=== PATIENT | female | born 1975 | race Caucasian/White ===

== ENCOUNTER 2016-10-08 22:05 | Inpatient (IN) | payer MEDICAID ==
--- NOTE | 2016-10-08 22:37 | EDPHY ---
H & P Stated Complaint: R lateral thigh; worried about MRSA HPI/ROS: HPI CHIEF COMPLAINT: Right lateral thigh swelling, redness, pain, IV drug user HISTORY OF PRESENT ILLNESS: This patient is a 40-year-old female she presents emergency room by private vehicle with swelling redness and warmth to the right leg. She tells me this has been going on for 4 days. She did have a fever 4 days ago. She tells me she is an avid IV drug user, she shoots heroin daily and methamphetamine daily. She has swelling, redness, erythema to the right lower extremity including thigh. Patient tells me most likely this is a injection site that got infected. Past Medical History: MRSA infection, cellulitis, IV drug site infection Past Surgical History: Right foot surgery from a MRSA infection Social History: homeless, daily use of IV drugs including heroin and methamphetamine Family History: Noncontributory ROS REVIEW OF SYSTEMS: A comprehensive 10 point review of systems is otherwise negative aside from elements mentioned in the history of present illness. Exam Constitutional triage nursing summary reviewed, vital signs reviewed, awake/ alert. Eyes normal conjunctivae and sclera, EOMI, PERRLA. HENT normal inspection, atraumatic, moist mucus membranes, no epistaxis, neck supple/ no meningismus, no raccoon eyes. Respiratory clear to auscultation bilaterally, normal breath sounds, no respiratory distress, no wheezing. Cardiovascular rate normal, regular rhythm, no murmur, no edema, distal pulses normal. Gastrointestinal soft, non-tender, no rebound, no guarding, normal bowel sounds, no distension, no pulsatile mass. Genitourinary no CVA tenderness. Musculoskeletal no midline vertebral tenderness, full range of motion, no calf swelling, no tenderness of extremities, no meningismus, good pulses, neurovascularly intact. Right lower extremity: edema present to the right lower extremity, significant amount of erythema and cellulitis to the right lower extremity including right lateral thigh and right lower extremity. Edema present. Erythema and warmth present. No crepitus. Right leg is neurovascular intact. Skin multiple extensive a IV drug user sites. Extensive venous scarring and scarring of extremities. See above for right lower extremity erythema. Neurologic awake, alert and oriented x 3, AAOx3, moves all 4 extremities equally, motor intact, sensory intact, CN II-XII intact, normal cerebellar, normal vision, normal speech. Psychiatric normal mood/affect. Heme/Lymph/Immune no lymphadenopathy. Differential Diagnosis: Includes but is not limited to right lower extremity cellulitis, MRSA infection, staph infection, strep infection, significant amount of cellulitis IV drug user site infection Medical Decision Making: This patient had an IV established, obtain blood work, blood cultures, started on vancomycin and cefepime for significant right lower extremity cellulitis. Her vitals have been reviewed there is no evidence of sepsis at this time. Patient will be admitted to the hospital. She will need ultrasound of right lower extremity. Re-evaluation: Ultrasound of the right lower extremity. The results of the study are negative for DVT. I discussed the results of this study with the radiologist Dr. Sandoval [id number]: I consult the hospitalist service to admit this patient for right lower extremity cellulitis. Patient received broad-spectrum antibiotics, blood cultures are pending. IV vancomycin, IV cefepime. She is hemodynamically stable afebrile. No signs of sepsis. Her cellulitis has been outlined. Dr. Mcnamara has Accepted. ED Procedure: I+D of right lower extremity leg abscess cellulitis. Under ultrasound guidance direct visualization was obtained of a right lateral thigh abscess. I made a simple 2 cm I and D with a 11 blade scalpel. And got 5 cc of yellow purulent material. Dressing has been placed. I did try to see if the wound tract. On ultrasound there is extensive cellulitis there is a small fluid-filled collection. I did drain some. The material. She will be placed on broad-spectrum antibiotics admitted to the hospitalist service. She tolerated the I and D very well. There was not enough room to pack her I and D. The image saved in ultrasound. Source: Patient - Personal History LMP (Females 10-55): Hysterectomy Current Tetanus/Diphtheria Vaccine: Yes - Medical/Surgical History Hx Asthma: No Hx Chronic Respiratory Disease: No Hx Diabetes: No Hx Cardiac Disease: Yes Hx Renal Disease: No Hx Cirrhosis: No Hx Alcoholism: No Hx HIV/AIDS: No Hx Splenectomy or Spleen Trauma: No Other PMH: PSHx: hysterectomy, L foot. PMHx: RA, DJD, "fibro", AL - Social History Smoking Status: Current every day smoker Constitutional: Initial Vital Signs Temperature (C) 36.3 C 10/08/16 22:07 Heart Rate 111 H 10/08/16 22:07 Respiratory Rate 16 10/08/16 22:07 Blood Pressure 114/85 H 10/08/16 22:07 O2 Sat (%) 99 10/08/16 22:07 O2 Delivery Mode Room Air Allergies/Adverse Reactions: amoxicillin Allergy (Verified 10/08/16 22:07) nitrous oxide Allergy (Verified 10/08/16 22:07) Penicillins Allergy (Verified 10/08/16 22:07) Home Medications: Medication Instructions Recorded NK [No Known Home Meds] 10/08/16 Medical Decision Making - Data Points Laboratory Results: Laboratory Results 10/08/16 23:00 10/08/16 23:00 10/08/16 23:00 WBC 15.07 H 10^3/uL (3.80-9.50) RBC 3.86 L 10^6/uL (4.18-5.33) Hgb 10.2 L g/dL (12.6-16.3) Hct 32.7 L % (38.0-47.0) MCV 84.7 fL (81.5-99.8) MCH 26.4 L pg (27.9-34.1) MCHC 31.2 L g/dL (32.4-36.7) RDW 16.0 H % (11.5-15.2) Plt Count 296 10^3/uL (150-400) MPV 10.0 fL (8.7-11.7) Neut % (Auto) 75.9 H % (39.3-74.2) Lymph % (Auto) 17.5 % (15.0-45.0) [place] % (Auto) 3.6 L % (4.5-13.0) Eos % (Auto) 0.8 % (0.6-7.6) Baso % (Auto) 0.3 % (0.3-1.7) Nucleat RBC Rel Count 0.0 % (0.0-0.2) Absolute Neuts (auto) 11.45 H 10^3/uL (1.70-6.50) Absolute Lymphs (auto) 2.63 10^3/uL (1.00-3.00) Absolute Monos (auto) 0.55 10^3/uL (0.30-0.80) Absolute Eos (auto) 0.12 10^3/uL (0.03-0.40) Absolute Basos (auto) 0.04 10^3/uL (0.02-0.10) Absolute Nucleated RBC 0.00 10^3/uL (0-0.01) Immature Gran % 1.9 H % (0.0-1.1) Immature Gran # 0.28 H 10^3/uL (0.00-0.10) ESR 83 H MM/HR (0-20) Sodium 142 mEq/L (134-144) Potassium 4.8 mEq/L (3.5-5.2) Chloride 107 mEq/L (97-110) Carbon Dioxide 22 mEq/l (22-31) Anion Gap 13 mEq/L (8-16) BUN 21 mg/dL (7-23) Creatinine 0.9 mg/dL (0.6-1.0) Estimated GFR > 60 Glucose 83 mg/dL (70-100) Calcium 8.6 mg/dL (8.5-10.4) Total Bilirubin 0.3 mg/dL (0.1-1.4) AST 15 IU/L (14-46) ALT 28 IU/L (9-52) Alkaline Phosphatase 147 H IU/L (38-126) C-Reactive Protein 59.5 H mg/L (<10.0) Total Protein 6.5 g/dL (6.3-8.2) Albumin 3.1 L g/dL (3.5-5.0) Medications Given: Discontinued Medications Fentanyl (Sublimaze) 50 mcg IVP EDNOW ONE Stop: 10/08/16 23:36 Last Admin: 10/09/16 00:06 Dose: 50 mcg Sodium Chloride (Ns) 1,000 mls @ 0 mls/hr IV ONCE ONE PRN Reason: Wide Open Stop: 10/08/16 22:42 Last Admin: 10/09/16 00:05 Dose: 1,000 mls Vancomycin/Sodium Chloride (Vancomycin 1 Gm (Premix)) 250 mls @ 250 mls/hr IV EDNOW ONE PRN Reason: Protocol Stop: 10/08/16 23:40 Last Admin: 10/09/16 00:05 Dose: 250 mls Departure - Departure Disposition: [facility] Acute Clinical Impression: Cellulitis of right lower extremity Condition: Fair
[2016-10-08] MEDS ORDERED: NS 1,000 ML IV ONE (22:41)
[2016-10-08] MEDS ORDERED: VANCOMYCIN HCL/NORMAL SALINE 250 ML IV ONE (22:41)
[2016-10-08] MEDS ORDERED: CEFEPIME HCL 1 GM in D5W 50 ML IV ONE (22:41)
[2016-10-08 23:15] LABS: % IMMATURE GRANULYOCYTES 1.9 % (0.0-1.1); ABSOLUTE IMMATURE GRANULOCYTES 0.28 10^3/uL (0.00-0.10); ADD DIFF? NO; ADD MORPH? NO; ADD SCAN? NO; ATYPICAL LYMPHOCYTE FLAG 20 (0-99); FRAGMENT RBC FLAG 0 (0-99); HEMATOCRIT 32.7 % (38.0-47.0); HEMOGLOBIN 10.2 g/dL (12.6-16.3); LEFT SHIFT FLG 10 (0-99); LIPEMIA HEMOLYSIS FLAG 80 (0-99); MEAN CELL HEMOGLOBIN 26.4 pg (27.9-34.1); MEAN CELL HEMOGLOBIN CONCENTR. 31.2 g/dL (32.4-36.7); MEAN CELL VOLUME 84.7 fL (81.5-99.8); PLATELET CLUMPS FLAG 0 (0-99); PLATELET COUNT 296 10^3/uL (150-400); RED BLOOD CELL COUNT 3.86 10^6/uL (4.18-5.33)
[2016-10-08] MEDS ORDERED: fentaNYL 100 MCG/2 ML INJ IVP ONE (23:35)
--- NOTE | 2016-10-08 23:45 | US ---
Ultrasound and Venous Duplex Doppler Study of Right Lower Extremity History: Swollen and red right lower extremity x4 days Technique: High frequency transducer was used for imaging and Doppler study of the veins of the lowe r extremity. Pulsed Doppler and color Doppler were utilized, along with various maneuvers to assess flow in the veins. Findings: There is several enlarged lymph nodes in the right inguinal area the largest measures 2.7 x 0.8 cm. The deep veins of the lower extremity are normally compressible between the groin and the u pper calf and have normal Doppler waveforms within them. No venous thrombosis is identified. No supe rficial phlebitis or Spann cyst is identified. Impression: 1. Right inguinal adenopathy. 2. No evidence of deep vein thrombosis in the right lower extremity. Results called to Dr. Cohen at 1144 p.m.
[2016-10-08 23:51] LABS: ALANINE AMINOTRANSFERASE 28 IU/L (9-52); ALBUMIN 3.1 g/dL (3.5-5.0); ALKALINE PHOSPHATASE 147 IU/L (38-126); ANION GAP 13 mEq/L (8-16); ASPARTATE AMINOTRANSFERASE 15 IU/L (14-46); BILIRUBIN,TOTAL 0.3 mg/dL (0.1-1.4); C-REACTIVE PROTEIN 59.5 mg/L (<10.0); CALCIUM 8.6 mg/dL (8.5-10.4); CARBON DIOXIDE 22 mEq/l (22-31); CHLORIDE 107 mEq/L (97-110); CREATININE 0.9 mg/dL (0.6-1.0); GLOMERULAR FILTRATION RATE > 60; GLUCOSE 83 mg/dL (70-100); POTASSIUM 4.8 mEq/L (3.5-5.2); SODIUM 142 mEq/L (134-144); TOTAL PROTEIN 6.5 g/dL (6.3-8.2)
[2016-10-09 00:03] LABS: SEDIMENTATION RATE 83 MM/HR (0-20)
[2016-10-09] MEDS ORDERED: IBUPROFEN 200 MG TAB PO PRN (00:17)
[2016-10-09] MEDS ORDERED: ONDANSETRON 4 MG/2 ML VIAL IVP PRN (00:17)
[2016-10-09] MEDS ORDERED: ONDANSETRON DISINTEGRATING 4 MG TAB PO PRN (00:17)
[2016-10-09] MEDS ORDERED: NS 1,000 ML IV SCH (00:30)
[2016-10-09] MEDS ORDERED: HYDROmorphONE/DILAUDID 1 MG/ML SYR IVP PRN (00:58)
[2016-10-09] MEDS: LORazepam 0.5 MG TAB PO PRN ×2 (01:42→07:42)
[2016-10-09] MEDS: KETOROLAC 30 MG/1 ML SDV IVP PRN ×2 (01:42→07:42)
[2016-10-09] MEDS: HYDROmorphONE/DILAUDID 1 MG/ML SYR IVP PRN ×5 (02:08→10:48)
--- NOTE | 2016-10-09 05:55 | PDGENHP ---
History and Physical - Chief Complaint R leg reddness and swelling - History of Present Illness patient is a 40-year-old female with history of active IV drug use, RA and fibromyalgia who presents to the ED complaining of right leg pain, swelling and erythema. Patient reports using IV heroin and methamphetamines at least twice daily. About 4 days ago she reports missing 1 of her veins on her lower right lateral thigh and the drugs extravasated subcutaneously. Since that time, redness and pain developed at the site of injection. She had an old prescription for Bactrim which she took beginning 3 days ago, but despite this the redness swelling and pain continued to increase and spread throughout her right leg. She reports some associated fevers and chills, so she decided to come to the ED for further evaluation. She denies any nausea, vomiting, diarrhea cough. patient reports history of multiple episodes of skin abscesses and cellulitis. She does report a history of MRSA infection of her right foot within the past 6 months (treated at a [facility]). On arrival to the ED patient was afebrile and hemodynamically stable. Labs revealed leukocytosis, elevated ESR and CRP. Lower extremity Doppler rule out DVT. Physical exam revealed evidence of abscess which was I&D by ED physician. She was initiated on IV antibiotics and admitted to the hospital service for further management. History Information - Allergies/Home Medication List Allergies/Adverse Reactions: amoxicillin Allergy (Verified 10/08/16 22:07) nitrous oxide Allergy (Verified 10/08/16 22:07) Penicillins Allergy (Verified 10/08/16 22:07) Home Medications: NK [No Known Home Meds] 10/08/16 [Last Taken Unknown] I have personally reviewed and updated: family history, medical history, social history, surgical history - Past Medical History Additional medical history: Rheumatoid arthritis, not currently followed by any MD. fibromyalgia. chronic pain syndrome. chronic IV opioid and methamphetamine abuse - Surgical History Additional surgical history: partial hysterectomy - Family History Positive for: non-pertinent - Social History Smoking Status: Current every day smoker (1/2 PPD x 5 years) Alcohol Use: None Drug Use: Heroin (IV), Other (methamphetamine) Additional social history: patient recently moved to the [facility] from [place], currently living with friends. Review of Systems ROS: 10pt was reviewed & negative except for what was stated in HPI & below Physical Exam Temp Pulse Resp BP Pulse Ox 36.4 C 99 14 122/81 H 98 10/09/16 03:30 10/09/16 03:30 10/09/16 03:30 10/09/16 03:30 10/09/16 03:30 Constitutional: no apparent distress, appears nourished, not in pain Eyes: PERRL, anicteric sclera, EOMI Ears, Nose, Mouth, Throat: moist mucous membranes, hearing normal, ears appear normal, no oral mucosal ulcers Cardiovascular: regular rate and rhythym, no murmur, rub, or gallop, pulses symmetric bilaterally, edema (R lower extremity edema), No JVD Peripheral Pulses: 2+: dorsalis-pedis (R), dorsalis-pedis (L) Respiratory: no respiratory distress, no rales or rhonchi, clear to auscultation Gastrointestinal: normoactive bowel sounds, soft, non-tender abdomen, no palpable masses, No guarding, No rebound Genitourinary: no bladder fullness, no bladder tenderness Skin: other (diffuse scattered injection site scarring; R lower extremity erythematous from lateral thigh just proximal to knee extending into calf and to upper thigh, with tenderness and edema ) Musculoskeletal: full muscle strength, no muscle tenderness, normal joint ROM, no joint effusions Neurologic: AAOx3, sensation intact bilaterally, CN II-XII Intact, No weakness, No numbness Psychiatric: interacting appropriately, not anxious, not encephalopathic, thought process linear Lab Data & Imaging Review 10/08/16 23:00 10/08/16 23:00 WBC 15.07 10^3/uL (3.80-9.50) H 10/08/16 23:00 RBC 3.86 10^6/uL (4.18-5.33) L 10/08/16 23:00 Hgb 10.2 g/dL (12.6-16.3) L 10/08/16 23:00 Hct 32.7 % (38.0-47.0) L 10/08/16 23:00 MCV 84.7 fL (81.5-99.8) 10/08/16 23:00 MCH 26.4 pg (27.9-34.1) L 10/08/16 23:00 MCHC 31.2 g/dL (32.4-36.7) L 10/08/16 23:00 RDW 16.0 % (11.5-15.2) H 10/08/16 23:00 Plt Count 296 10^3/uL (150-400) 10/08/16 23:00 MPV 10.0 fL (8.7-11.7) 10/08/16 23:00 Neut % (Auto) 75.9 % (39.3-74.2) H 10/08/16 23:00 Lymph % (Auto) 17.5 % (15.0-45.0) 10/08/16 23:00 [place] % (Auto) 3.6 % (4.5-13.0) L 10/08/16 23:00 Eos % (Auto) 0.8 % (0.6-7.6) 10/08/16 23:00 Baso % (Auto) 0.3 % (0.3-1.7) 10/08/16 23:00 Nucleat RBC Rel Count 0.0 % (0.0-0.2) 10/08/16 23:00 Absolute Neuts (auto) 11.45 10^3/uL (1.70-6.50) H 10/08/16 23:00 Absolute Lymphs (auto) 2.63 10^3/uL (1.00-3.00) 10/08/16 23:00 Absolute Monos (auto) 0.55 10^3/uL (0.30-0.80) 10/08/16 23:00 Absolute Eos (auto) 0.12 10^3/uL (0.03-0.40) 10/08/16 23:00 Absolute Basos (auto) 0.04 10^3/uL (0.02-0.10) 10/08/16 23:00 Absolute Nucleated RBC 0.00 10^3/uL (0-0.01) 10/08/16 23:00 Immature Gran % 1.9 % (0.0-1.1) H 10/08/16 23:00 Immature Gran # 0.28 10^3/uL (0.00-0.10) H 10/08/16 23:00 ESR 83 MM/HR (0-20) H 10/08/16 23:00 Sodium 142 mEq/L (134-144) 10/08/16 23:00 Potassium 4.8 mEq/L (3.5-5.2) 10/08/16 23:00 Chloride 107 mEq/L (97-110) 10/08/16 23:00 Carbon Dioxide 22 mEq/l (22-31) 10/08/16 23:00 Anion Gap 13 mEq/L (8-16) 10/08/16 23:00 BUN 21 mg/dL (7-23) 10/08/16 23:00 Creatinine 0.9 mg/dL (0.6-1.0) 10/08/16 23:00 Estimated GFR > 60 10/08/16 23:00 Glucose 83 mg/dL (70-100) 10/08/16 23:00 Calcium 8.6 mg/dL (8.5-10.4) 10/08/16 23:00 Total Bilirubin 0.3 mg/dL (0.1-1.4) 10/08/16 23:00 AST 15 IU/L (14-46) 10/08/16 23:00 ALT 28 IU/L (9-52) 10/08/16 23:00 Alkaline Phosphatase 147 IU/L (38-126) H 10/08/16 23:00 C-Reactive Protein 59.5 mg/L (<10.0) H 10/08/16 23:00 Total Protein 6.5 g/dL (6.3-8.2) 10/08/16 23:00 Albumin 3.1 g/dL (3.5-5.0) L 10/08/16 23:00 Visualized and Interpreted imaging results: Yes Interpretation: LE doppler: no DVT Assessment & Plan Assessment: Patient is a 40-year-old female with history of chronic IV drug abuse who presents to the ED with acute right lower extremity cellulitis at site injection. Plan: # acute R lower extremity cellulitis with abscess formation Patient with evidence of sepsis due to acute, extensive cellulitis of RLE. She reports a history of MRSA infection in her R foot about 6 months ago. Current infection did not improve with home bactrim dosing. Will cover for presumed MRSA cellulitis and given symptomatic treatment of symptoms. - cont Vanc 1 g q12h - IVF hydration - monitor ESR, CRP and wbc trend - ID consult - f/u blood cultures # chronic, continuous IV drug abuse Patient advised of the risks of this behavior, reports using to control her RA/ fibromyalgia pain. Case management/addiction services consult. # active tobacco use Advised on risks of continued tobacco use. Offered nicotine patch, pt declined. # dispo: admit to inpt service for > 2 MN for presumed sepsis due to MRSA cellulitis # gen: regular diet DVT ppx: lovenox Full code
[2016-10-09] MEDS: ENOXAPARIN 40 MG/0.4 ML SYR SC SCH (08:35)
[2016-10-09] MEDS ORDERED: CEFEPIME HCL 1 GM in D5W 50 ML IV SCH (09:00)
[2016-10-09] MEDS: VANCOMYCIN 750 MG in D5W 150 ML IV SCH (11:10)
--- NOTE | 2016-10-09 11:11 | GCON ---
[f rep st] CONSULTATION INFECTIOUS DISEASE CONSULTATION DATE OF CONSULTATION: 10/09/2016 REASON FOR CONSULTATION: Right lower extremity cellulitis. CHIEF COMPLAINT: Right lower extremity redness and pain. HISTORY OF PRESENTING ILLNESS: This is a 40-year-old, female with a past medical history s ignificant for intravenous drug use, rheumatoid arthritis, fibromyalgia, hypothyroidism. She states that she tried to inject IV heroin and methamphetamine about 4 days ago in her lower right lateral th igh vein and she missed. She stated that the drug extravasated subcutaneously. She stated that sinc e then she started to develop redness and pain and swelling involving the thigh, which extended upwar ds as well as down to her leg. She had taken some Bactrim which did not improve her symptoms. She r eports fevers and shaking chills as well. Due to increasing pain and redness, she came in for furthe r evaluation. She had an ultrasound of the right lower extremity which was negative for DVT but she did have some enlarged lymph nodes in the right inguinal region. She was tachycardic on arrival at 1 11. White blood cell count was 15,000 with a left shift. Her C-reactive protein was elevated at 59. 9. Blood cultures x2 sets were drawn and are currently pending. She states that there is some impro vement in the redness compared to yesterday, but she continues to have significant amount of pain inv olving her right thigh. Infectious Disease is now consulted for further evaluation and plan regardin g the above. She was recently admitted to [facility] in July 2016. At that time, she had left lower e xtremity cellulitis. CT scan showed no evidence to suggest necrotizing fasciitis. She was seen by william soto. She was given vancomycin. She had an HIV test done at that time, which was negative. REVIEW OF SYSTEMS: GENERAL: Fevers and shaking chills. HEAD: Denies any headache. EYES: No snider ge in vision. ENT: No sore throat, difficulty swallowing, ear pain or drainage. CARDIOVASCULAR: D enies any chest pain or rapid heart beat. RESPIRATORY: Denies any shortness of breath. Has some mi ld cough. No sputum production. ABDOMEN: No nausea, vomiting, abdominal pain, diarrhea. : No d ysuria. EXTREMITIES: Swelling of the right lower extremity. MUSCULOSKELETAL: Joint pains at basel ine from rheumatoid arthritis involving her wrists, her knees and her ankles. SKIN: Infection invol ving the left lower extremity. Rest of the review of systems essentially negative except as above. PAST MEDICAL HISTORY: Significant for rheumatoid arthritis, fibromyalgia, chronic pain, hypothyroidi sm, history of uterine cancer, chronic IV heroin and methamphetamine use, history of skin infections. PAST SURGICAL HISTORY: Significant for partial hysterectomy. FAMILY HISTORY: Significant for rheumatoid arthritis. SOCIAL HISTORY: She is a smoker, smokes half a pack per day. She denies alcohol use. She uses hero in and methamphetamine. She recently moved to [place] from [facility] and is living with friends currently . MEDICATIONS: As per OCT. ALLERGIES: Penicillin, which gives her hives. No shortness of breath. PHYSICAL EXAMINATION: VITAL SIGNS: Temperature current 36.4, pulse is 67, blood pressure 100/82, re spiratory rate is 18, saturation 96% on room air. GENERAL: The patient is resting on the couch, in no acute respiratory distress, but states she is quite in pain. She states her leg is burning. HEEN T: Head is normocephalic, atraumatic. Pupils are equal, round, reactive to light. No conjunctival injection. No petechiae. Oropharynx is clear. No obvious posterior pharyngeal erythema noted. CAR DIOVASCULAR: S1, S2. Regular rate and rhythm. RESPIRATORY: Clear to auscultate bilaterally. ABDO MEN: Positive bowel sounds in all quadrants. Soft, nontender, nondistended. No obvious organomegal y appreciated. EXTREMITIES: Pertinent findings: Right lower extremity swelling. MUSCULOSKELETAL: No obvious joint effusions. SKIN: Pertinent findings right thigh with induration and erythema on t he lateral aspect. There is a scab over the previous injection site with moderate induration around that along with erythema. Tender to palpation. Some erythema down the leg but that is more mild com pared to the thigh. LABS: White blood cell count of 15.0, hemoglobin 10.0, platelets 296, neutrophil count 75%. ESR 83. Sodium 142, potassium 4.8, chloride 107, bicarb 22, BUN is 21, creatinine 0.9. AST 15, ALT 28, tot al bilirubin 0.3. C-reactive protein 59.5, blood cultures x2 sets are pending. Ultrasound of the lo wer extremity reviewed and as stated above. ASSESSMENT: 1. Right lower extremity cellulitis with possible abscess versus other deeper involvement. 2. Injection drug usage. 3. Allergies to penicillin and amoxicillin, with hives. 4. Rheumatoid arthritis. 5. History of methicillin-resistant Staphylococcus aureus, per patient. PLAN: At this time, she is currently on vancomycin, which I will continue for now. She has showed s ome good clinical improvement. So far, however, there is more erythema and induration constituted on the thigh. Would recommend a CT with contrast to further evaluate any underlying abscess or deeper seated infectious process. May need to have Surgery evaluate the patient as well. We will check HIV , hepatitis B and hepatitis C parameters. Recheck labs in the morning. Await additional cultures to direct additional workup. The plan of care was described to the patient and discussed with the charline ent. Thank you very much for allowing us to care for your patient in consultation. /[id number]/MODL
[2016-10-09] MEDS ORDERED: oxyCODONE IR 5 MG TAB PO PRN (11:32)
[2016-10-09] MEDS: ACETAMINOPHEN 325 MG TAB PO PRN ×2 (12:12→20:29)
--- NOTE | 2016-10-09 14:19 | HOSPPROG ---
Hospitalist Progress Note Assessment/Plan: Patient is a 40-year-old female with history of chronic IV drug abuse who presents to the ED with acute right lower extremity cellulitis at site injection. Reviewed her care with Dr Lemus who admitted last night. # acute R lower extremity cellulitis with possible abscess * hx of MRSA * recent IV drug use * on vancomycin * Dr Lin evaluated patient * elevated sed rate, elevated CRP * may need surgical evaluation # sepsis/ noted on admission * blood cx pending # leukocytosis * due to the above # chronic, continuous IV drug abuse * started on Oxy IR for pain * Hep panel and HIV panel pending # RA, fibromyalgia/ chronic pain #. anemia/ unclear of baseline * follow # nicotine dependence * Offered nicotine patch, pt declined. # dispo: admit to inpt service for > 2 MN for presumed sepsis due to MRSA cellulitis # DVT ppx: lovenox # Plan: will need another midnight stay for IV abx and treatment Subjective: Leanna is asking for more pain medications. Says her right lower leg is causing her pain. Objective: Vital Signs Temp Pulse Resp BP Pulse Ox 36.4 C 67 18 100/82 H 96 10/09/16 08:00 10/09/16 08:00 10/09/16 08:00 10/09/16 08:00 10/09/16 08:00 10/08/16 10/09/16 10/10/16 05:59 05:59 05:59 Intake Total 1250 1486 Balance 1250 1486 - Physical Exam Constitutional: uncomfortable Eyes: PERRL, scleral injection Ears, Nose, Mouth, Throat: hearing normal Respiratory: no respiratory distress Gastrointestinal: normoactive bowel sounds Skin: warm, other (right leg with multiple injection sites, scab over right calf area/ warm/ hardened area on calf) Neurologic: AAOx3, other (drowsy) Psychiatric: interacting appropriately ICD10 Worksheet Patient Problems: Problems Problem Status Diagnosed Cellulitis of right lower extremity Acute
[2016-10-09] MEDS: oxyCODONE IR 15 MG TAB PO PRN ×2 (16:11→20:16)
[2016-10-09] MEDS: IBUPROFEN 600 MG TAB PO PRN (16:12)
[2016-10-09] MEDS ORDERED: IOPAMIDOL (ISOVUE-300) 100 ML BTL IV ONE (16:47)
--- NOTE | 2016-10-09 18:39 | CT ---
CT right lower extremity with intravenous contrast History: Right leg cellulitis. Technique: Axial computed tomographic images of the right leg from the midpelvis to the distal tibia and fibula region was performed with the uneventful intravenous administration of 85 mL Isovue 300 co ntrast. Coronal and sagittal reconstruction images were performed. Findings: Bones demonstrate no evidence of osteomyelitis or destruction of the right femur, patella, right tibia or fibula. There is edema in the lateral thigh and calf soft tissues, consistent with cellulitis. In the distal lateral thigh region, there is a subcutaneous fluid collection measuring 4.2 x 1.8 cm in axial dimens ion and 6 cm in cephalocaudal dimension, which may represent abscess or hematoma. No definite evidenc e of intramuscular fluid collection. No significant degenerative changes. Impression: 1. Right thigh and leg lateral cellulitis. 2. Focal fluid collection distal lateral thigh region measuring 4.2 x 1.8 x 6 cm, which may represent early abscess. 3. No evidence of osteomyelitis.
[2016-10-09 21:42] LABS: % IMMATURE GRANULYOCYTES 1.9 % (0.0-1.1); ABSOLUTE IMMATURE GRANULOCYTES 0.27 10^3/uL (0.00-0.10); ADD DIFF? NO; ADD MORPH? NO; ADD SCAN? NO; ATYPICAL LYMPHOCYTE FLAG 40 (0-99); FRAGMENT RBC FLAG 0 (0-99); HEMATOCRIT 32.6 % (38.0-47.0); HEMOGLOBIN 10.1 g/dL (12.6-16.3); LEFT SHIFT FLG 10 (0-99); LIPEMIA HEMOLYSIS FLAG 80 (0-99); MEAN CELL HEMOGLOBIN 26.7 pg (27.9-34.1); MEAN CELL VOLUME 86.2 fL (81.5-99.8); MEAN PLATELET VOLUME 10.2 fL (8.7-11.7); PLATELET CLUMPS FLAG 0 (0-99); PLATELET COUNT 299 10^3/uL (150-400); RED BLOOD CELL COUNT 3.78 10^6/uL (4.18-5.33); RED CELL DISTRIBUTION WIDTH 15.8 % (11.5-15.2)
[2016-10-09 21:51] LABS: INR 0.97 (0.83-1.16); PROTIME(PATIENT) 12.8 SEC (12.0-15.0)
[2016-10-09 21:52] LABS: APTT 28.6 SEC (23.0-38.0)
[2016-10-09 21:54] LABS: ANION GAP 8 mEq/L (8-16); CALCIUM 8.5 mg/dL (8.5-10.4); CARBON DIOXIDE 24 mEq/l (22-31); CHLORIDE 109 mEq/L (97-110); CREATININE 0.8 mg/dL (0.6-1.0); GLOMERULAR FILTRATION RATE > 60; GLUCOSE 99 mg/dL (70-100); MAGNESIUM 1.8 mg/dL (1.6-2.3); POTASSIUM 5.2 mEq/L (3.5-5.2); SODIUM 141 mEq/L (134-144)
[2016-10-10] MEDS: IBUPROFEN 600 MG TAB PO PRN ×3 (00:23→12:39)
[2016-10-10] MEDS: ACETAMINOPHEN 325 MG TAB PO PRN ×4 (00:24→12:39)
[2016-10-10] MEDS: oxyCODONE IR 15 MG TAB PO PRN ×5 (00:24→18:10)
[2016-10-10] MEDS: VANCOMYCIN 750 MG in D5W 150 ML IV SCH (00:25)
[2016-10-10] MEDS ORDERED: CLINDAMYCIN 900 MG/DEXTROSE 50 ML IV SCH (02:30)
[2016-10-10] MEDS ORDERED: ERTAPENEM 1 GM in NS 100 ML IV ONE (02:55)
--- NOTE | 2016-10-10 03:02 | HOSPPROG ---
Hospitalist Progress Note Assessment/Plan: Micro called with gram positive rods in blood. Cover for possible Clostridium. Ideally, Zosyn/Clinda, but patient with PCN allergy. Carbapenems is alternative ; dose now and d/w ID in morning. Objective: Vital Signs Temp Pulse Resp BP Pulse Ox 37.1 C 99 18 109/80 94 10/10/16 00:00 10/10/16 00:00 10/10/16 00:00 10/10/16 00:00 10/10/16 00:00 Laboratory Results 10/09/16 21:34 10/09/16 21:34 10/08/16 10/09/16 10/10/16 05:59 05:59 05:59 Intake Total 1250 1486 Balance 1250 1486 PT 12.8 SEC (12.0-15.0) 10/09/16 21:34 INR 0.97 (0.83-1.16) 10/09/16 21:34 ICD10 Worksheet Patient Problems: Problems Problem Status Diagnosed Cellulitis of right lower extremity Acute
[2016-10-10 05:45] LABS: ADD DIFF? YES; ADD MORPH? NO; ADD SCAN? NO; ATYPICAL LYMPHOCYTE FLAG 40 (0-99); FRAGMENT RBC FLAG 20 (0-99); HEMATOCRIT 32.4 % (38.0-47.0); HEMOGLOBIN 10.2 g/dL (12.6-16.3); LEFT SHIFT FLG 20 (0-99); LIPEMIA HEMOLYSIS FLAG 80 (0-99); MEAN CELL HEMOGLOBIN 26.9 pg (27.9-34.1); MEAN CELL HEMOGLOBIN CONCENTR. 31.5 g/dL (32.4-36.7); MEAN CELL VOLUME 85.5 fL (81.5-99.8); MEAN PLATELET VOLUME 10.4 fL (8.7-11.7); PLATELET CLUMPS FLAG 0 (0-99); PLATELET COUNT 293 10^3/uL (150-400); RED BLOOD CELL COUNT 3.79 10^6/uL (4.18-5.33); RED CELL DISTRIBUTION WIDTH 15.9 % (11.5-15.2)
[2016-10-10 06:03] LABS: ALANINE AMINOTRANSFERASE 24 IU/L (9-52); ALBUMIN 2.6 g/dL (3.5-5.0); ALKALINE PHOSPHATASE 107 IU/L (38-126); ANION GAP 9 mEq/L (8-16); ASPARTATE AMINOTRANSFERASE 11 IU/L (14-46); BILIRUBIN,TOTAL 0.2 mg/dL (0.1-1.4); CALCIUM 8.7 mg/dL (8.5-10.4); CARBON DIOXIDE 22 mEq/l (22-31); CHLORIDE 109 mEq/L (97-110); CREATININE 0.8 mg/dL (0.6-1.0); GLOMERULAR FILTRATION RATE > 60; GLUCOSE 87 mg/dL (70-100); POTASSIUM 5.2 mEq/L (3.5-5.2); SODIUM 140 mEq/L (134-144); TOTAL PROTEIN 5.6 g/dL (6.3-8.2)
[2016-10-10 06:43] LABS: LARGE PLATELETS PRESENT; PLATELET ESTIMATE ADEQUATE (ADEQ)
[2016-10-10 06:44] LABS: HYPOCHROMIA 1+; MICROCYTES 1+
[2016-10-10] MEDS: MULTIVITAMINS 1 EACH TAB PO SCH (08:38)
[2016-10-10] MEDS: ENOXAPARIN 40 MG/0.4 ML SYR SC SCH (11:17)
[2016-10-10] MEDS: VANCOMYCIN HCL/NORMAL SALINE 250 ML IV SCH (11:34)
[2016-10-10] MEDS: HYDROmorphONE/DILAUDID 1 MG/ML SYR IVP PRN ×2 (11:35→15:54)
--- NOTE | 2016-10-10 14:10 | PCMIDPN ---
Assessment/Plan: Assessment: Right thigh cellulitis with probable abscess the lateral aspect. This is secondary to patient injection of methamphetamines. Patient was covered with vancomycin and ertapenem and clindamycin until today. Will continue the vancomycin therapy and ask General surgery to drain what seems to be a fluctuant collection. Plan: 1. Continue vancomycin 1 g IV Q 12 hours 2. Seek General surgery evaluation for I and D right thigh. 3. Follow culture data. 10/10/16 19:26 Subjective: Patient is in some significant pain due to her right lower extremity inflammation. The erythema has regressed from drawn lines. No fevers or chills. Objective: Vancomycin # 1 Ertapenem # 1 Clindamycin # 1 Vital Signs Temp Pulse Resp BP Pulse Ox 36.7 C 88 16 125/89 H 96 10/10/16 08:00 10/10/16 08:00 10/10/16 08:00 10/10/16 08:00 10/10/16 08:00 Laboratory Results 10/10/16 05:08 10/10/16 05:08 10/09/16 10/10/16 10/11/16 05:59 05:59 05:59 Intake Total 1250 2603.5 Balance 1250 2603.5 ESR 83 MM/HR (0-20) H 10/08/16 23:00 C-Reactive Protein 59.5 mg/L (<10.0) H 10/08/16 23:00 - Physical Exam General Appearance: WD/WN, alert, no apparent distress, non-toxic Respiratory: lungs clear, normal breath sounds, No respiratory distress Cardiac/Chest: regular rate, rhythm, No tachycardia Extremities: No non-tender, No normal inspection Skin: normal color, warm/dry, other (Multiple injection partida), No rash ICD10 Worksheet Patient Problems: Problems Problem Status Diagnosed Cellulitis of right lower extremity Acute
--- NOTE | 2016-10-10 14:28 | SOAPPROG ---
SOAP Progress Note Assessment/Plan: 10/10/16 14:20 Assessment: Patient with subcut injection of Meth TX'd at home with five days of PO bactrim. Area of cellulitis is dramatically smaller than area outlined in blue marker. She is growing clostridia. She still has a tender 4x6 inch area with erythema and fluctuance. I was asked to see this patient to determine if drainage would be a helpful adjunct. Plan: I expect that there is some subcutaneous necrosis due to the meth injection as well as infection. I recommend that I open the skin, provide debridement and place a wound vac. Repeat debridement may be necessary. Because she has eaten, I will need to delay her surgery until this evening. Subjective: "it still hurts" The patient went on to explain that she has been using pain meds for ~20 years. Objective: Vital Signs Temp Pulse Resp BP Pulse Ox 36.7 C 88 16 125/89 H 96 10/10/16 08:00 10/10/16 08:00 10/10/16 08:00 10/10/16 08:00 10/10/16 08:00 Laboratory Results 10/10/16 05:08 10/10/16 05:08 10/09/16 10/10/16 10/11/16 05:59 05:59 05:59 Intake Total 1250 2603.5 Balance 1250 2603.5 PT 12.8 SEC (12.0-15.0) 10/09/16 21:34 INR 0.97 (0.83-1.16) 10/09/16 21:34 - Time Spent With Patient Time Spent With Patient: 15 Physical Exam - Physical Exam General Appearance: alert Extremities: other (Area of erythema is ~ 4x6 inches just superior and lateral to right knee) ICD10 Worksheet Patient Problems: Problems Problem Status Diagnosed Cellulitis of right lower extremity Acute
--- NOTE | 2016-10-10 14:51 | HOSPPROG ---
Hospitalist Progress Note Assessment/Plan: Patient is a 40-year-old female with history of chronic IV drug abuse who presents to the ED with acute right lower extremity cellulitis at site injection. Reviewed her care with Dr Sevilla who admitted last night. # acute R lower extremity cellulitis with abscess * hx of MRSA * recent IV drug use * on vancomycin * Dr Sevilla evaluated patient * elevated sed rate, elevated CRP * surgical consult and plan for OR today # sepsis/ noted on admission * blood cx positive 1bottle # leukocytosis * due to the above # chronic, continuous IV drug abuse * started on Oxy IR for pain * Hep panel and HIV panel pending # RA, fibromyalgia/ chronic pain #. anemia/ unclear of baseline * follow # nicotine dependence * Offered nicotine patch, pt declined. # dispo: admit to inpt service for > 2 [place] for presumed sepsis due to MRSA cellulitis # DVT ppx: lovenox # plan for OR later tonight Treat with IV pain medication in the interim Reviewed with Dr. Henderson Subjective: Patient complains of significant leg pain. Appears to be having some drug withdrawal. Anxious and irritated. Objective: Vital Signs Temp Pulse Resp BP Pulse Ox 36.7 C 88 16 125/89 H 96 10/10/16 08:00 10/10/16 08:00 10/10/16 08:00 10/10/16 08:00 10/10/16 08:00 Laboratory Results 10/10/16 05:08 10/10/16 05:08 10/09/16 10/10/16 10/11/16 05:59 05:59 05:59 Intake Total 1250 2603.5 Balance 1250 2603.5 PT 12.8 SEC (12.0-15.0) 10/09/16 21:34 INR 0.97 (0.83-1.16) 10/09/16 21:34 - Physical Exam Constitutional: appears nourished, chronically ill appearing, uncomfortable Eyes: PERRL, anicteric sclera, EOMI Ears, Nose, Mouth, Throat: moist mucous membranes, hearing normal, ears appear normal Cardiovascular: regular rate and rhythym, No JVD, No tachycardia Respiratory: no respiratory distress, no rales or rhonchi, reduced air movement Gastrointestinal: normoactive bowel sounds, No tenderness, No ascites Skin: warm, abrasion, erythema, fluctuance Musculoskeletal: no joint effusions, muscular tenderness, generalized weakness Neurologic: AAOx3 Psychiatric: thought process linear, anxious, poor insight, poor judgement ICD10 Worksheet Patient Problems: Problems Problem Status Diagnosed Cellulitis of right lower extremity Acute
[2016-10-10] MEDS ORDERED: BACITRACIN 50,000 UNITS/10 ML SYR IRR ONE (21:18)
[2016-10-10] MEDS ORDERED: POLYMYXIN B SULFATE 500,000 UNIT/10 ML SYR IRR ONE (21:18)
[2016-10-10] MEDS ORDERED: MIDAZOLAM 2 MG/2 ML VIAL ONE (21:27)
[2016-10-10] MEDS ORDERED: fentaNYL 250 MCG/5 ML INJ ONE (21:28)
[2016-10-10] MEDS ORDERED: PROPOFOL 200 MG/20 ML VIAL ONE (21:28)
[2016-10-10] MEDS ORDERED: LIDOCAINE 2% 100 MG/5 ML SYR IVP ONE (21:30)
[2016-10-10] MEDS ORDERED: fentaNYL 100 MCG/2 ML INJ ONE (22:28)
[2016-10-10] MEDS ORDERED: HYDROmorphONE/DILAUDID 1 MG/ML SYR ONE (22:29)
--- NOTE | 2016-10-10 22:41 | POSTOPPROG ---
Post Op Note Date of Operation: 10/10/16 (NOTE- dictation is not functional) Surgeon: Neftlay Henderson Anesthesia: LMA Pre-op Diagnosis: abscess right leg Post-op Diagnosis: abscess right leg Indication: abscess right leg Procedure: I&D abscess, culture, debride/irrigate, place wound vac Findings: abscess right leg Inf/Abcess present in the surg proc area at time of surgery?: Yes Depth: Superfical (Skin SQ) EBL: 50-100 Complications: none Drains: Wound Vac Specimen(s): culture
[2016-10-10] MEDS ORDERED: ACETAMINOPHEN 500 MG TAB ONE (22:44)
[2016-10-10] MEDS ORDERED: KETOROLAC 30 MG/1 ML SDV ONE (22:47)
[2016-10-11] MEDS: KETOROLAC 30 MG/1 ML SDV IVP SCH ×4 (00:14→18:19)
[2016-10-11] MEDS: VANCOMYCIN HCL/NORMAL SALINE 250 ML IV SCH ×2 (00:24→11:47)
[2016-10-11] MEDS: HYDROmorphONE/DILAUDID 1 MG/ML SYR IVP PRN ×4 (00:24→09:46)
[2016-10-11] MEDS: oxyCODONE IR 15 MG TAB PO PRN ×5 (01:47→20:55)
[2016-10-11] MEDS: ACETAMINOPHEN 500 MG TAB PO SCH ×3 (05:02→22:10)
[2016-10-11 05:49] LABS: ADD DIFF? YES; ADD MORPH? NO; ADD SCAN? NO; ATYPICAL LYMPHOCYTE FLAG 30 (0-99); FRAGMENT RBC FLAG 20 (0-99); HEMATOCRIT 33.7 % (38.0-47.0); HEMOGLOBIN 10.4 g/dL (12.6-16.3); LEFT SHIFT FLG 10 (0-99); LIPEMIA HEMOLYSIS FLAG 80 (0-99); MEAN CELL HEMOGLOBIN 26.2 pg (27.9-34.1); MEAN CELL HEMOGLOBIN CONCENTR. 30.9 g/dL (32.4-36.7); MEAN CELL VOLUME 84.9 fL (81.5-99.8); MEAN PLATELET VOLUME 10.5 fL (8.7-11.7); PLATELET CLUMPS FLAG 0 (0-99); PLATELET COUNT 285 10^3/uL (150-400); RED BLOOD CELL COUNT 3.97 10^6/uL (4.18-5.33); RED CELL DISTRIBUTION WIDTH 15.9 % (11.5-15.2)
[2016-10-11 06:22] LABS: ALANINE AMINOTRANSFERASE 23 IU/L (9-52); ALBUMIN 2.6 g/dL (3.5-5.0); ALKALINE PHOSPHATASE 105 IU/L (38-126); ANION GAP 10 mEq/L (8-16); ASPARTATE AMINOTRANSFERASE 15 IU/L (14-46); BILIRUBIN,TOTAL 0.3 mg/dL (0.1-1.4); CALCIUM 8.3 mg/dL (8.5-10.4); CARBON DIOXIDE 23 mEq/l (22-31); CHLORIDE 106 mEq/L (97-110); CREATININE 0.7 mg/dL (0.6-1.0); GLOMERULAR FILTRATION RATE > 60; GLUCOSE 92 mg/dL (70-100); POTASSIUM 5.4 mEq/L (3.5-5.2); SODIUM 139 mEq/L (134-144); TOTAL PROTEIN 5.7 g/dL (6.3-8.2)
[2016-10-11 06:43] LABS: PLATELET ESTIMATE ADEQUATE (ADEQ)
[2016-10-11] MEDS: MULTIVITAMINS 1 EACH TAB PO SCH (08:42)
--- NOTE | 2016-10-11 08:52 | SOAPPROG ---
SOAP Progress Note Assessment/Plan: 10/10/16 14:20 Assessment: Patient with subcut injection of Meth TX'd at home with five days of PO bactrim. Area of cellulitis is dramatically smaller than area outlined in blue marker. She is growing clostridia. She still has a tender 4x6 inch area with erythema and fluctuance. I was asked to see this patient to determine if drainage would be a helpful adjunct. Plan: I expect that there is some subcutaneous necrosis due to the meth injection as well as infection. I recommend that I open the skin, provide debridement and place a wound vac. Repeat debridement may be necessary. Because she has eaten, I will need to delay her surgery until this evening. 10/11/16 08:49 POD#1 Assessment: Wound culture pending. 150 cc out since surgery - serosanguineous. Temp up immediately post OP but down since. WBC up this AM which is not unexpected with manipulation of abscess. Nursing suspects that she is self medicating but we have not been able to prove that. She c/o of pain. Plan: Return to OR for wound vac change on Saturday. Please stop lovenox after Saturday morning dose. Nutrition poor. Have encouraged PO intake. Need to mobilize to preserve muscle mass. 10/11/16 08:52 Subjective: It hurts Objective: Vital Signs Temp Pulse Resp BP Pulse Ox 36.8 C 90 14 111/75 94 10/11/16 07:54 10/11/16 07:54 10/11/16 07:54 10/11/16 07:54 10/11/16 07:54 Microbiology 10/10/16 22:05 Gram Stain - Final Leg - Swab Laboratory Results 10/11/16 04:50 10/11/16 04:50 10/10/16 10/11/16 10/12/16 05:59 05:59 05:59 Intake Total 2603.5 1320 Output Total 40 Balance 2603.5 1280 PT 12.8 SEC (12.0-15.0) 10/09/16 21:34 INR 0.97 (0.83-1.16) 10/09/16 21:34 - Time Spent With Patient Time Spent With Patient: 25 Physical Exam - Physical Exam General Appearance: alert, no apparent distress, other (No apparent distress but c/o pain ) Respiratory: lungs clear, normal breath sounds Cardiac/Chest: regular rate, rhythm Abdomen: normal bowel sounds, non-tender, soft Lymphatic: inguinal node tender (R) Extremities: other (erythema and edema at distal lateral right upper leg decreasing) ICD10 Worksheet Patient Problems: Problems Problem Status Diagnosed Cellulitis of right lower extremity Acute
--- NOTE | 2016-10-11 09:09 | GOP ---
[f rep st] OPERATIVE REPORT DATE OF OPERATION: 10/10/2016 SURGEON: Neftaly Henderson MD PREOPERATIVE DIAGNOSIS: Abscess right leg. POSTOPERATIVE DIAGNOSIS: Abscess right leg. PROCEDURE PERFORMED: 1. I and D of abscess. 2. Culture of purulent fluid. 3. Debridement and irrigation. 4. Placement of wound VAC. FINDINGS: subcutaneous abscess INDICATIONS: Abscess right leg. DESCRIPTION OF PROCEDURE: The patient was placed on the operating table in supine position. After induction of adequate general anesthesia by LMA, the right leg is carefully elevated, and prepped circumferentially from the groin to above the ankle. The leg was elevated and wrapped circumferentially with a folded surgical towel at the level of the ankle. A stockinette was placed over it and this was then secured with Coban. A sterile field was developed below the leg. An extremity drape was placed over the leg at the level of the high thigh. The extremity ellsi is elevated underneath the drapes so that it could be sat in the padded extremity ellis. At this point, a surgical time-out was carried out and agreed to by all members of the operative team. This patient has a distal lateral right upper leg abscess with cellulitis, measuring approximately 4 inches x 6 inches. The skin and subcutaneous tissue were incised with the Bovie electric cautery set on 30 watt seconds. This was done because she is on Lovenox. Hemostasis is achieved in the course procedure, using cautery. Approximately 30 cc of govea /white purulent material was obtained. A culture is obtained. The abscess cavity is carefully debrided. It is irrigated with a Simpulse with added bacitracin. 1 L was used. When hemostasis has been completely achieved, a wound VAC sponge is placed. The wound vac sterile plastic covering was then positioned. The vacuum adaptor was placed. Suction was initiated and a good seal was identified. The patient was transferred to recovery in stable and satisfactory condition. /[id number]/MODL MTDD
--- NOTE | 2016-10-11 14:49 | HOSPPROG ---
Hospitalist Progress Note Assessment/Plan: Patient is a 40-year-old female with history of chronic IV drug abuse who presents to the ED with acute right lower extremity cellulitis at site injection. # acute R lower extremity cellulitis with abscess * hx of MRSA * recent IV drug use * on vancomycin * ID following * elevated sed rate, elevated CRP * I&D and wound vac * D/W Dr Henderson # sepsis/ noted on admission * blood cx positive 1bottle # leukocytosis * due to the above # chronic, continuous IV drug abuse * started on Oxy IR for pain * Hep panel and HIV panel pending * caught injecting in her IV, security notified * not allowed to have visitors * belongings searched * no IV pain meds # RA, fibromyalgia/ chronic pain * no IV pain meds #. anemia/ unclear of baseline * follow # nicotine dependence * Offered nicotine patch, pt declined. # dispo: admit to inpt service for > 2 MN for presumed sepsis due to MRSA cellulitis # DVT ppx: lovenox Subjective: C/o pain. Anxious. Agitated. Objective: Vital Signs Temp Pulse Resp BP Pulse Ox 36.8 C 90 14 111/75 94 10/11/16 07:54 10/11/16 07:54 10/11/16 07:54 10/11/16 07:54 10/11/16 07:54 Microbiology 10/10/16 22:05 Gram Stain - Final Leg - Swab Laboratory Results 10/11/16 04:50 10/11/16 04:50 10/10/16 10/11/16 10/12/16 05:59 05:59 05:59 Intake Total 2603.5 1320 Output Total 40 Balance 2603.5 1280 PT 12.8 SEC (12.0-15.0) 10/09/16 21:34 INR 0.97 (0.83-1.16) 10/09/16 21:34 - Physical Exam Constitutional: chronically ill appearing, uncomfortable, unkempt Eyes: PERRL, anicteric sclera, EOMI Ears, Nose, Mouth, Throat: moist mucous membranes, hearing normal, ears appear normal Cardiovascular: tachycardia, No JVD, No edema Respiratory: no respiratory distress, no rales or rhonchi, reduced air movement Gastrointestinal: No tenderness, No ascites, No guarding Skin: warm, erythema, other (wound vac) Musculoskeletal: no joint effusions, muscular tenderness, generalized weakness Neurologic: AAOx3 Psychiatric: thought process linear, anxious, agitated, poor insight, poor judgement ICD10 Worksheet Patient Problems: Problems Problem Status Diagnosed Cellulitis of right lower extremity Acute
--- NOTE | 2016-10-11 19:31 | PCMIDPN ---
Assessment/Plan: Assessment: Right leg cellulitis with probable abscess the lateral aspect. Purulence found yesterday evening upon incision and drainage. Cultures are pending. Meantime we will continue the vancomycin given that the soft tissue erythema both above and below the abscess cavity has resolved. Plan: 1. Continue vancomycin 1 g IV Q 12 hours 2. Follow culture data from incision and drainage. 3. Wound care via VAC dressing per General surgery. 10/10/16 19:26 10/12/16 08:41 Subjective: Patient is resting in her hospital bed. She complains of ongoing severe pain in the leg. Denies any improvement after incision and drainage. Complains that it cooper. Objective: Vancomycin # 2 Vital Signs Temp Pulse Resp BP Pulse Ox 37.2 C 102 H 18 106/85 H 92 10/11/16 15:13 10/11/16 15:13 10/11/16 15:13 10/11/16 15:13 10/11/16 15:13 Microbiology 10/10/16 22:05 Gram Stain - Final Leg - Swab Laboratory Results 10/11/16 04:50 10/11/16 04:50 10/10/16 10/11/16 10/12/16 05:59 05:59 05:59 Intake Total 2603.5 1320 Output Total 40 200 Balance 2603.5 1280 -200 ESR 83 MM/HR (0-20) H 10/08/16 23:00 C-Reactive Protein 59.5 mg/L (<10.0) H 10/08/16 23:00 - Physical Exam General Appearance: WD/WN, alert, no apparent distress, non-toxic Respiratory: lungs clear, normal breath sounds, No respiratory distress Cardiac/Chest: regular rate, rhythm, No tachycardia Extremities: No non-tender, No normal inspection Skin: normal color, warm/dry, rash (Multiple injection partida.) Neuro/Psych: alert, normal mood/affect, oriented x 3 ICD10 Worksheet Patient Problems: Problems Problem Status Diagnosed Cellulitis of right lower extremity Acute
[2016-10-12] MEDS: KETOROLAC 30 MG/1 ML SDV IVP SCH ×5 (00:17→23:35)
[2016-10-12] MEDS: VANCOMYCIN HCL/NORMAL SALINE 250 ML IV SCH ×2 (00:18→12:27)
[2016-10-12] MEDS: oxyCODONE IR 15 MG TAB PO PRN ×3 (00:28→10:14)
[2016-10-12] MEDS: ACETAMINOPHEN 500 MG TAB PO SCH ×3 (06:17→21:41)
--- NOTE | 2016-10-12 08:52 | HOSPPROG ---
Hospitalist Progress Note Assessment/Plan: Patient is a 40-year-old female with history of chronic IV drug abuse who presents to the ED with acute right lower extremity cellulitis at site injection. reviewed her care with Dr. Zhu. # acute R lower extremity cellulitis with abscess / MSSA * recent IV drug use/ legs are covered with multiple pop partida * on vancomycin * ID following * elevated sed rate, elevated CRP * I&D and wound vac # sepsis/ noted on admission * blood cx positive 1bottle # leukocytosis * due to the above # chronic, continuous IV drug abuse * started on Oxy IR for pain/ patient says this is not helping with her pain / asking if we could try oral Dilaudid instead * will DC Oxy-IR, treat with oral Dilaudid, this will need to be weaned off during her stay. * Explained to the patient she will not get prescriptions for narcotics on discharge/ she is likely to inject them * Hep C + and HIV is negative * caught injecting in her IV, security notified * not allowed to have visitors * belongings searched * no IV pain meds #. hyperkalemia * recheck labs in the morning # RA, fibromyalgia/ chronic pain * no IV pain meds #. anemia/ unclear of baseline * follow # nicotine dependence * Offered nicotine patch, pt declined. # dispo: admit to inpt service for > 2 MN for presumed sepsis due to MRSA cellulitis # DVT ppx: lovenox Subjective: patient is complaining of severe pain. Objective: Vital Signs Temp Pulse Resp BP Pulse Ox 36.8 C 93 18 120/81 H 93 10/12/16 07:40 10/12/16 07:40 10/12/16 07:40 10/12/16 07:40 10/12/16 07:40 Microbiology 10/10/16 22:05 Gram Stain - Final Leg - Swab Laboratory Results 10/11/16 04:50 10/11/16 04:50 10/11/16 10/12/16 10/13/16 05:59 05:59 05:59 Intake Total 1320 970 Output Total 40 200 Balance 1280 770 PT 12.8 SEC (12.0-15.0) 10/09/16 21:34 INR 0.97 (0.83-1.16) 10/09/16 21:34 - Physical Exam Constitutional: no apparent distress, appears nourished Eyes: PERRL Ears, Nose, Mouth, Throat: hearing normal Cardiovascular: regular rate and rhythym Respiratory: no respiratory distress Gastrointestinal: normoactive bowel sounds Skin: other ( She has a wound VAC in place. No redness or erythema noted. She has multiple pop partida on her upper and lower leg area) Musculoskeletal: No no muscle tenderness Neurologic: AAOx3 Psychiatric: interacting appropriately, anxious ICD10 Worksheet Patient Problems: Problems Problem Status Diagnosed Cellulitis of right lower extremity Acute
[2016-10-12] MEDS: MULTIVITAMINS 1 EACH TAB PO SCH (08:59)
[2016-10-12] MEDS ORDERED: ENOXAPARIN 40 MG/0.4 ML SYR SC SCH (09:00)
[2016-10-12] MEDS: HYDROmorphONE/DILAUDID 4 MG TAB PO PRN ×3 (13:53→21:41)
--- NOTE | 2016-10-12 16:22 | PCMIDPN ---
Assessment/Plan: # polymicrobial right lower extremity abscess, culture shows primarily MSSA but also at lower levels 2 GNR. No obvious residual infection around wound VAC on exam today. Significance of gram-negative rods is unclear as patient has had significant clinical improvement to this point without coverage of these organisms. # bacillus cereus bacteremia, this can be a cause for contamination can also be a true pathogen individuals who use IVDU /surface contamination while cooking drugs. I did not detect a murmur on exam today. today is day 2 of antibiotic therapy # history of yeast in her blood/ candidal endocarditis cannot be confirmed at this time as patient refuses obtaining records # hepatitis-C and hepatitis-B core antibody positive suggest past and/or current infection . At this point with her history, consider getting additional labs as an outpatient Recommendations 1. disadvantage vancomycin is a requires increased monitoring and patient is very difficult to obtain blood therefore change to ertapenem. Carbapenems are a second-line agent for bacillus , vancomycin 1st line. 2. duration of antibiotic therapy and modality to be determined 3. probably the only way to get repeat blood cultures will be to place a PICC line which I am not sure we want to do at this point Subjective: Tells me she was hospitalized at [facility] for 5 weeks approximately 1 month ago. She states that she had "yeast in her blood and that it was infecting her heart" patient was caught trying to inject her own IV yesterday Objective: Vital Signs Temp Pulse Resp BP Pulse Ox 36.5 C 97 20 127/93 H 96 10/12/16 15:31 10/12/16 15:31 10/12/16 15:31 10/12/16 15:31 10/12/16 15:31 Microbiology 10/10/16 22:05 Gram Stain - Final Leg - Swab Laboratory Results 10/11/16 04:50 10/11/16 04:50 10/11/16 10/12/16 10/13/16 05:59 05:59 05:59 Intake Total 1320 970 Output Total 40 200 Balance 1280 770 ESR 83 MM/HR (0-20) H 10/08/16 23:00 C-Reactive Protein 59.5 mg/L (<10.0) H 10/08/16 23:00 - Physical Exam General Appearance: alert, no apparent distress, non-toxic EENT: No scleral icterus, No conjunctival petechiae Respiratory: lungs clear Cardiac/Chest: regular rate, rhythm, No systolic murmur Skin: signs of IVDA, No embolic lesions Neuro/Psych: alert, oriented x 3 - Line/s other Lines: other ( left IJ P IV C/D/I), No drainage, No erythema ICD10 Worksheet Patient Problems: Problems Problem Status Diagnosed Cellulitis of right lower extremity Acute
[2016-10-12] MEDS: ERTAPENEM 1 GM in NS 100 ML IV SCH (16:37)
[2016-10-13] MEDS: HYDROmorphONE/DILAUDID 4 MG TAB PO PRN ×5 (03:11→21:42)
[2016-10-13] MEDS: ACETAMINOPHEN 500 MG TAB PO SCH ×3 (05:49→21:21)
[2016-10-13] MEDS: KETOROLAC 30 MG/1 ML SDV IVP SCH ×2 (05:50→13:17)
[2016-10-13 06:16] LABS: % IMMATURE GRANULYOCYTES 1.4 % (0.0-1.1); ABSOLUTE IMMATURE GRANULOCYTES 0.15 10^3/uL (0.00-0.10); ADD DIFF? NO; ADD MORPH? NO; ADD SCAN? NO; ATYPICAL LYMPHOCYTE FLAG 30 (0-99); FRAGMENT RBC FLAG 20 (0-99); HEMOGLOBIN 9.3 g/dL (12.6-16.3); LEFT SHIFT FLG 10 (0-99); LIPEMIA HEMOLYSIS FLAG 80 (0-99); MEAN CELL HEMOGLOBIN 26.3 pg (27.9-34.1); MEAN PLATELET VOLUME 10.4 fL (8.7-11.7); PLATELET CLUMPS FLAG 10 (0-99); PLATELET COUNT 258 10^3/uL (150-400); RED BLOOD CELL COUNT 3.53 10^6/uL (4.18-5.33); RED CELL DISTRIBUTION WIDTH 16.4 % (11.5-15.2)
--- NOTE | 2016-10-13 07:51 | SOAPPROG ---
SOAP Progress Note Assessment/Plan: 10/10/16 14:20 Assessment: Patient with subcut injection of Meth TX'd at home with five days of PO bactrim. Area of cellulitis is dramatically smaller than area outlined in blue marker. She is growing clostridia. She still has a tender 4x6 inch area with erythema and fluctuance. I was asked to see this patient to determine if drainage would be a helpful adjunct. Plan: I expect that there is some subcutaneous necrosis due to the meth injection as well as infection. I recommend that I open the skin, provide debridement and place a wound vac. Repeat debridement may be necessary. Because she has eaten, I will need to delay her surgery until this evening. 10/11/16 08:49 POD#1 Assessment: Wound culture pending. 150 cc out since surgery - serosanguineous. Temp up immediately post OP but down since. WBC up this AM which is not unexpected with manipulation of abscess. Nursing suspects that she is self medicating but we have not been able to prove that. She c/o of pain. Plan: Return to OR for wound vac change on Saturday. Please stop lovenox after Saturday morning dose. Nutrition poor. Have encouraged PO intake. Need to mobilize to preserve muscle mass. 10/13/16 07:47 POD#3 10/13/2016 Assessment: Erythema resolved, wound minimally tender, wound vac in place. WBC down (17 to 10). Antibiotics have been changed, Staph and Enterobacter both sensitive to Invanz. Gram neg genny still to be ID'd with sensitivities pending. Did have drenching sweat last night. Plan: To OR today for sedation for wound vac change. CMP ordered SCDS whenever not walking Need to mobilize - would prefer walking in rodas 5 laps/ 5x/day nutrition - will check prealbumin today 10/13/16 08:01 Subjective: I'm better Objective: Vital Signs Temp Pulse Resp BP Pulse Ox 36.8 C 94 16 119/93 H 96 10/13/16 00:00 10/13/16 00:00 10/13/16 00:00 10/13/16 00:00 10/13/16 00:00 Microbiology 10/10/16 22:05 Gram Stain - Final Leg - Swab Laboratory Results 10/13/16 05:50 10/11/16 04:50 10/12/16 10/13/16 10/14/16 05:59 05:59 05:59 Intake Total 970 600 Output Total 200 Balance 770 600 PT 12.8 SEC (12.0-15.0) 10/09/16 21:34 INR 0.97 (0.83-1.16) 10/09/16 21:34 - Time Spent With Patient Time Spent With Patient: 15 - Pending Discharge Pending Discharge Within 24 Hours: No Pending Discharge Within 48 Hours: No Physical Exam - Physical Exam General Appearance: alert, no apparent distress Neck: non-tender, full range of motion, supple, other (EJ line in Left neck) Respiratory: chest non-tender, lungs clear, normal breath sounds Cardiac/Chest: regular rate, rhythm, other (no murmur) Abdomen: normal bowel sounds, non-tender, soft Pelvic Exam: deferred Rectal: deferred Skin: diaphoresis Lymphatic: inguinal node tender (R) Extremities: other (wound vac in place. erythema resolved, much less tender) Neuro/Psych: alert, normal mood/affect, oriented x 3 ICD10 Worksheet Patient Problems: Problems Problem Status Diagnosed Cellulitis of right lower extremity Acute
[2016-10-13] MEDS ORDERED: BACITRACIN 50,000 UNITS/10 ML SYR IRR ONE (07:56)
[2016-10-13] MEDS ORDERED: POLYMYXIN B SULFATE 500,000 UNIT/10 ML SYR IRR ONE (07:58)
[2016-10-13] MEDS ORDERED: fentaNYL 100 MCG/2 ML INJ ONE ×2 (08:29→09:31)
[2016-10-13] MEDS ORDERED: PROPOFOL 200 MG/20 ML VIAL ONE ×2 (08:29)
[2016-10-13] MEDS ORDERED: MIDAZOLAM 2 MG/2 ML VIAL ONE (08:32)
[2016-10-13] MEDS ORDERED: LIDOCAINE 2% 100 MG/5 ML SYR IVP ONE (08:32)
[2016-10-13 08:55] LABS: ALANINE AMINOTRANSFERASE 21 IU/L (9-52); ALBUMIN 2.5 g/dL (3.5-5.0); ALKALINE PHOSPHATASE 91 IU/L (38-126); ANION GAP 8 mEq/L (8-16); ASPARTATE AMINOTRANSFERASE 13 IU/L (14-46); BILIRUBIN,TOTAL 0.2 mg/dL (0.1-1.4); CALCIUM 8.4 mg/dL (8.5-10.4); CARBON DIOXIDE 24 mEq/l (22-31); CHLORIDE 109 mEq/L (97-110); CREATININE 0.7 mg/dL (0.6-1.0); GLOMERULAR FILTRATION RATE > 60; GLUCOSE 92 mg/dL (70-100); SODIUM 141 mEq/L (134-144); TOTAL PROTEIN 5.6 g/dL (6.3-8.2)
[2016-10-13] MEDS ORDERED: epHEDrine SULFATE 10 MG/ML SYR ONE (09:09)
[2016-10-13 09:15] LABS: PREALBUMIN 15.7 mg/dL (17.6-36.0)
--- NOTE | 2016-10-13 09:24 | POSTOPPROG ---
Post Op Note Date of Operation: 10/13/16 Surgeon: Neftaly Henderson Anesthesia: LMA Pre-op Diagnosis: wound right distal upper leg Post-op Diagnosis: wound right distal upper leg Indication: wound right distal upper leg Procedure: Wound irrigation and wound vac change Findings: wound right distal upper leg Inf/Abcess present in the surg proc area at time of surgery?: No Complications: none Drains: Wound Vac Specimen(s): none
[2016-10-13] MEDS ORDERED: HYDROmorphONE/DILAUDID 1 MG/ML SYR ONE (09:32)
--- NOTE | 2016-10-13 09:57 | GOP ---
[f rep st] OPERATIVE REPORT DATE OF OPERATION: 10/13/2016 SURGEON: Neftaly Henderson MD PREOPERATIVE DIAGNOSIS: Open wound right distal upper leg. POSTOPERATIVE DIAGNOSIS: Open wound right distal upper leg. PROCEDURE PERFORMED: Wound irrigation with 1 L of saline (with bacitracin) and replacement of wound VAC. FINDINGS: Open wound right distal upper leg. INDICATIONS: Open wound right distal upper leg. DESCRIPTION OF PROCEDURE: The patient was placed on the operating table in supine position. After induction of adequate general anesthesia by laryngeal mask, the right leg was carefully elevated, prepped, and draped. A sterile field was developed. A surgical time-out was carried out and agreed to by all members of the operative team. The wound VAC had been removed as part of the prep procedure. The wound was now inspected. There is a good response to the wound vac with a reasonable amount of granulation tissue. Several oozing sites were cauterized with Bovie electrocautery. The wound was now irrigated with a Simpulse arson investigator using 1000 cc with the added bacitracin. Leg was now cleansed. A wound VAC is placed. There was no leak on testing. She was returned to recovery in stable and satisfactory condition. /[id number]/MODL MTDD
[2016-10-13] MEDS: ERTAPENEM 1 GM in NS 100 ML IV SCH (10:16)
[2016-10-13] MEDS: MULTIVITAMINS 1 EACH TAB PO SCH (10:17)
--- NOTE | 2016-10-13 10:26 | POSTANESTH ---
Post Anesthetic Evaluation Cardiovascular Status: Normal, Stable, Similar to Pre-Op Cond Respiratory Status: Normal, Stable, Similar to Pre-op Cond. Level of Consciousness/Mental Status: Can Participate in Eval Pain Control: Inadeq, Add Tx Required Nausea/Vomiting Control: Adequate, Prn Tx Ordered Complications Possibly Related to Anesthesia: None Noted Notes: POD 0 s/p I+D RLE STI. Pt is recovering well from anesthesia, no evidence for ill effects. Pain is poorly controlled at this time. Per Dr Henderson's request discussed the risks and benefits of epidural analgesia. The pt is very worried as she recalls a previous episode of post dural puncture LOMBARDI following a workup for meningitis with multiple spinal taps for CSF. Explained that the risk of PDPHA with epidural placement is much lower (typically <2%, with a subsequent > 90% success rate of resolution with epidural blood patch x2). She expressed continued concern about the procedure and states that she is not interested in PCEA at this time but would like to think about it. Thank you for this interesting consult please don't hesitate to page with any questions or concerns ([phone]).
--- NOTE | 2016-10-13 17:08 | HOSPPROG ---
Hospitalist Progress Note Assessment/Plan: Patient is a 40-year-old female with history of chronic IV drug abuse who presents to the ED with acute right lower extremity cellulitis at site injection. reviewed her care with Dr. Zhu. # acute R lower extremity cellulitis with abscess / MSSA * recent IV drug use/ legs are covered with multiple pop partida * on vancomycin * ID following * elevated sed rate, elevated CRP * s/p wound irrigation and replacement of wound vac today # sepsis/ noted on admission * blood cx positive 1 bottle # leukocytosis * due to the above # chronic, continuous IV drug abuse * states oral diluadid is helping/ told her this dose would be decreased tomorrow * Explained to the patient she will not get prescriptions for narcotics on discharge/ she is likely to inject them * Hep C + and HIV is negative * caught injecting in her IV, security notified * not allowed to have visitors * belongings searched * no IV pain meds #. hyperkalemia * resolved # RA, fibromyalgia/ chronic pain * no IV pain meds #. anemia/ unclear of baseline * follow # nicotine dependence * Offered nicotine patch, pt declined. # dispo: admit to inpt service # DVT ppx: lovenox Subjective: Leanna said pain has returned due to wound vac change earlier today. Objective: Vital Signs Temp Pulse Resp BP Pulse Ox 36.3 C 97 16 116/74 95 10/13/16 15:50 10/13/16 15:50 10/13/16 15:50 10/13/16 15:50 10/13/16 15:50 Microbiology 10/10/16 22:05 Gram Stain - Final Leg - Swab Laboratory Results 10/13/16 05:50 10/13/16 05:56 10/12/16 10/13/16 10/14/16 05:59 05:59 05:59 Intake Total 970 600 200 Output Total 200 0 Balance 770 600 200 PT 12.8 SEC (12.0-15.0) 10/09/16 21:34 INR 0.97 (0.83-1.16) 10/09/16 21:34 - Physical Exam Constitutional: uncomfortable Eyes: PERRL Ears, Nose, Mouth, Throat: hearing normal Cardiovascular: regular rate and rhythym Respiratory: no respiratory distress Gastrointestinal: normoactive bowel sounds Skin: warm, other (multiple pop partida on legs/ wound vac in place/ no redness or swelling) Psychiatric: anxious, agitated ICD10 Worksheet Patient Problems: Problems Problem Status Diagnosed Cellulitis of right lower extremity Acute
[2016-10-13] MEDS: IBUPROFEN 600 MG TAB PO SCH (21:22)
[2016-10-14] MEDS: HYDROmorphONE/DILAUDID 4 MG TAB PO PRN ×6 (01:35→21:36)
[2016-10-14] MEDS: ACETAMINOPHEN 500 MG TAB PO SCH ×3 (06:25→21:36)
[2016-10-14] MEDS: IBUPROFEN 600 MG TAB PO SCH ×3 (06:26→17:31)
[2016-10-14] MEDS ORDERED: ENOXAPARIN 40 MG/0.4 ML SYR SC SCH (09:00)
[2016-10-14] MEDS: ERTAPENEM 1 GM in NS 100 ML IV SCH (09:28)
[2016-10-14] MEDS: MULTIVITAMINS 1 EACH TAB PO SCH (09:29)
--- NOTE | 2016-10-14 11:14 | HOSPPROG ---
Hospitalist Progress Note Assessment/Plan: Patient is a 40-year-old female with history of chronic IV drug abuse who presents to the ED with acute right lower extremity cellulitis at site injection. # acute R lower extremity cellulitis with abscess / MSSA * recent IV drug use/ legs are covered with multiple pop partida * Ertapenem * s/p wound irrigation and replacement of wound vac * Discussed with Dr. Henderson about patient's care today. He will evaluate her tomorrow to see if she continues to need the wound VAC. Hopefully this can be discontinued if she has good wound granulation. # sepsis/ noted on admission * blood cx positive 1 bottle # leukocytosis * due to the above # chronic, continuous IV drug abuse * decreased oral Dilaudid from 4 mg to 2 mg (this has been used for her pain) * CM giving her resources for Suboxone clinics * Hep C + and HIV is negative * caught injecting in her IV, security notified * not allowed to have visitors * belongings searched * no IV pain meds #. hyperkalemia * resolved # RA, fibromyalgia/ chronic pain * no IV pain meds #. anemia/ unclear of baseline * follow # nicotine dependence * Offered nicotine patch, pt declined. # dispo: admit to inpt service # DVT ppx: lovenox Subjective: Leanna is c/o pain. Objective: Vital Signs Temp Pulse Resp BP Pulse Ox 37.7 C 113 H 20 122/84 H 91 L 10/14/16 07:28 10/14/16 07:28 10/14/16 07:28 10/14/16 07:28 10/14/16 07:28 Microbiology 10/10/16 22:05 Gram Stain - Final Leg - Swab Laboratory Results 10/13/16 05:50 10/13/16 05:56 10/13/16 10/14/16 10/15/16 05:59 05:59 05:59 Intake Total 600 1200 Output Total 0 Balance 600 1200 PT 12.8 SEC (12.0-15.0) 10/09/16 21:34 INR 0.97 (0.83-1.16) 10/09/16 21:34 - Physical Exam Constitutional: no apparent distress, appears nourished Eyes: PERRL Ears, Nose, Mouth, Throat: hearing normal Respiratory: no respiratory distress Gastrointestinal: normoactive bowel sounds Skin: warm, other (wound vac in place) Musculoskeletal: muscular tenderness Neurologic: AAOx3 Psychiatric: interacting appropriately, not anxious, not encephalopathic ICD10 Worksheet Patient Problems: Problems Problem Status Diagnosed Cellulitis of right lower extremity Acute
[2016-10-14] MEDS ORDERED: KETOROLAC 30 MG/1 ML SDV IVP PRN (16:02)
[2016-10-15] MEDS: HYDROmorphONE/DILAUDID 4 MG TAB PO PRN ×2 (01:46→05:46)
[2016-10-15] MEDS: IBUPROFEN 600 MG TAB PO PRN ×3 (03:36→16:04)
[2016-10-15] MEDS: ACETAMINOPHEN 500 MG TAB PO SCH ×2 (05:46→16:04)
[2016-10-15] MEDS: HYDROmorphONE/DILAUDID 2 MG TAB PO PRN ×2 (09:42→16:05)
--- NOTE | 2016-10-15 09:44 | PCMIDPN ---
Assessment/Plan: Assessment/Plan: * Right lower extremity abscess in setting of injection drug use s/p incision and drainage: Cultures with growth of MSSA, K. pneumoniae, and Enterobacter cloacae all susceptible to Bactrim. Plans for wound vac change in OR today. No surrounding cellulitis or soft tissue induration. Will transition to oral Bactrim to complete 5 additional days of therapy. * + Blood culture for bacillus: Growth in 1/4 bottles - most likely contaminant although can be true pathogen with injection drug use; unusual that not present in abscess if true bacteremia. Received 6 days of therapy (vancomycin, ertapenem ). Will not proceed with continued therapy targeting Bacillus at this point given probability represents contaminant and potential risk of IV in patient with active injection drug use. 10/15/16 09:37 Subjective: Patient complains of pain in right lower extremity at wound vac site. Wants wound vac discontinued. Objective: Vital Signs Temp Pulse Resp BP Pulse Ox 36.6 C 68 18 120/79 94 10/15/16 08:50 10/15/16 08:50 10/15/16 08:50 10/15/16 08:50 10/15/16 08:50 Microbiology 10/10/16 22:05 Gram Stain - Final Leg - Swab Laboratory Results 10/13/16 05:50 10/13/16 05:56 10/14/16 10/15/16 10/16/16 05:59 05:59 05:59 Intake Total 1200 2490 Output Total 0 2000 Balance 1200 490 ESR 83 MM/HR (0-20) H 10/08/16 23:00 C-Reactive Protein 59.5 mg/L (<10.0) H 10/08/16 23:00 s/p vancomycin and ertapenem Wound with MSSA, K.pneumoniae and E. cloacae Blood cultures / B. cereus - Physical Exam General Appearance: alert, no apparent distress Extremities: other (wound vac in place right lower extremity without surrounding erythema or induration; prior area of erythema demarcated fully resolved) ICD10 Worksheet Patient Problems: Problems Problem Status Diagnosed Cellulitis of right lower extremity Acute
[2016-10-15] MEDS: ERTAPENEM 1 GM in NS 100 ML IV SCH (10:24)
[2016-10-15] MEDS: MULTIVITAMINS 1 EACH TAB PO SCH (10:25)
--- NOTE | 2016-10-15 10:27 | SOAPPROG ---
SOAP Progress Note Assessment/Plan: 10/10/16 14:20 Assessment: Patient with subcut injection of Meth TX'd at home with five days of PO bactrim. Area of cellulitis is dramatically smaller than area outlined in blue marker. She is growing clostridia. She still has a tender 4x6 inch area with erythema and fluctuance. I was asked to see this patient to determine if drainage would be a helpful adjunct. Plan: I expect that there is some subcutaneous necrosis due to the meth injection as well as infection. I recommend that I open the skin, provide debridement and place a wound vac. Repeat debridement may be necessary. Because she has eaten, I will need to delay her surgery until this evening. 10/11/16 08:49 POD#1 Assessment: Wound culture pending. 150 cc out since surgery - serosanguineous. Temp up immediately post OP but down since. WBC up this AM which is not unexpected with manipulation of abscess. Nursing suspects that she is self medicating but we have not been able to prove that. She c/o of pain. Plan: Return to OR for wound vac change on Saturday. Please stop lovenox after Saturday morning dose. Nutrition poor. Have encouraged PO intake. Need to mobilize to preserve muscle mass. 10/13/16 07:47 POD#3 10/13/2016 Assessment: Erythema resolved, wound minimally tender, wound vac in place. WBC down (17 to 10). Antibiotics have been changed, Staph and Enterobacter both sensitive to Invanz. Gram neg genny still to be ID'd with sensitivities pending. Did have drenching sweat last night. Plan: To OR today for sedation for wound vac change. CMP ordered SCDS whenever not walking Need to mobilize - would prefer walking in rodas 5 laps/ 5x/day nutrition - will check prealbumin today 10/15/16 10:24 assessment/plan: Will remove wound vac in OR and decide if it needs to be continued or if we can change to moist to dry dressing changes. Will place right EJ at surgery for access Subjective: Complains bitterly of poor pain control Objective: Vital Signs Temp Pulse Resp BP Pulse Ox 36.6 C 68 18 120/79 94 10/15/16 08:50 10/15/16 08:50 10/15/16 08:50 10/15/16 08:50 10/15/16 08:50 Microbiology 10/10/16 22:05 Gram Stain - Final Leg - Swab Laboratory Results 10/13/16 05:50 10/13/16 05:56 10/14/16 10/15/16 10/16/16 05:59 05:59 05:59 Intake Total 1200 2490 Output Total 0 2000 Balance 1200 490 PT 12.8 SEC (12.0-15.0) 10/09/16 21:34 INR 0.97 (0.83-1.16) 10/09/16 21:34 - Time Spent With Patient Time Spent With Patient: 25 Physical Exam - Physical Exam Extremities: other (No erythema around wound vac, actually non-tender to touch) ICD10 Worksheet Patient Problems: Problems Problem Status Diagnosed Cellulitis of right lower extremity Acute
[2016-10-15] MEDS ORDERED: SULFAMETHOX/TMP 800/160 MG 1 TAB PO SCH (10:30)
[2016-10-15] MEDS ORDERED: BACITRACIN 50,000 UNITS/10 ML SYR IRR ONE (13:54)
[2016-10-15] MEDS ORDERED: fentaNYL 100 MCG/2 ML INJ ONE ×2 (14:13→14:47)
[2016-10-15] MEDS ORDERED: PROPOFOL 200 MG/20 ML VIAL ONE (14:13)
[2016-10-15] MEDS ORDERED: MIDAZOLAM 2 MG/2 ML VIAL ONE (14:18)
[2016-10-15] MEDS ORDERED: KETOROLAC 30 MG/1 ML SDV ONE (15:01)
--- NOTE | 2016-10-15 15:10 | POSTOPPROG ---
Post Op Note Date of Operation: 10/15/16 Surgeon: Neftaly Henderson Anesthesia: GET(General Endotracheal) Pre-op Diagnosis: s/p wound vac therapy Post-op Diagnosis: s/p wound vac therapy Indication: s/p wound vac therapy Procedure: examination under anesthesia/dressing change Findings: s/p wound vac therapy Inf/Abcess present in the surg proc area at time of surgery?: No EBL: Minimal Complications: none Specimen(s): none
[2016-10-15] MEDS ORDERED: ONDANSETRON 4 MG/2 ML VIAL ONE (15:25)
[2016-10-15] MEDS ORDERED: SUCCINYLCHOLINE CHLORIDE*ANESTHESIA ONLY*200 MG/10 ML SYR IVP ONE (15:51)
[2016-10-15] MEDS ORDERED: ROCURONIUM 50 MG/5 ML VIAL ONE (15:51)
[2016-10-15 16:24] VITALS: RESP 16; TEMP 98.6
--- NOTE | 2016-10-15 16:50 | GOP ---
[f rep st] OPERATIVE REPORT DATE OF OPERATION: 10/15/2016 SURGEON: Neftaly Henderson MD ANESTHESIA: General endotracheal. PREOPERATIVE DIAGNOSIS: Status post wound VAC therapy. POSTOPERATIVE DIAGNOSIS: Status post wound VAC therapy. PROCEDURE PERFORMED: Examination under anesthesia/dressing change. FINDINGS: Status post wound VAC therapy, good granulation tissue. Bleeding minimal. INDICATIONS: Status post wound VAC therapy. DESCRIPTION OF PROCEDURE: The patient was brought to the operating room. She had no IV access becau se of her prior IV drug abuse. Right external jugular vein was approached, and I was able to establi sh 18-gauge IV therapy. She was sedated and placed under general endotracheal anesthesia. The right leg was elevated. The wound VAC was removed. Good granulation tissue was noted. There wa s bleeding from 1 spot. The wound was carefully prepped with Betadine, and a sterile field was devel oped. A surgical time-out was carried out and agreed to by all members of the operative team. The bleeding at the distal end was exposed by extending the incision. Cautery was used. Hemostasis was achieved. The wound was now dressed moist to dry. It was covered with an ABD and a Kerlix. The patient was transferred back to recovery in stable and satisfactory condition. /[id number]/MODL
--- NOTE | 2016-10-15 17:17 | HOSPPROG ---
Hospitalist Progress Note Assessment/Plan: Patient is a 40-year-old female with history of chronic IV drug abuse who presents to the ED with acute right lower extremity cellulitis at site injection. Reviewed her care with Dr Henderson and Dr Baires. # acute R lower extremity cellulitis with abscess / MSSA * recent IV drug use/ legs are covered with multiple pop partida * Ertapenem/changed to Bactrim * Wound vac removed in OR with Dr Henderson * will get wound care to see # sepsis/ noted on admission * blood cx positive 1 bottle # leukocytosis * due to the above # chronic, continuous IV drug abuse * decreased oral Dilaudid to 2 mg * CM giving her resources for Suboxone clinics/she's having difficulty reaching them * Hep C + and HIV is negative * caught injecting in her IV, today she emptied the sharps into her back pack * not allowed to have visitors unless staff member can stay with her the whole time * belongings searched * no IV pain meds #. hyperkalemia * resolved # RA, fibromyalgia/ chronic pain * no IV pain meds #. anemia/ unclear of baseline * follow # nicotine dependence * Offered nicotine patch, pt declined. # dispo: admit to inpt service # DVT ppx: lovenox #Plan: will need Bactrim, wound care to review dressing changes with the patient , PT to see, check labs in a.m. Subjective: Leanna is tearful/ she says no one understands her underlying pain issues. Objective: Vital Signs Temp Pulse Resp BP Pulse Ox 37 C 76 16 118/76 99 10/15/16 16:17 10/15/16 16:17 10/15/16 16:17 10/15/16 16:17 10/15/16 16:17 Microbiology 10/10/16 22:05 Gram Stain - Final Leg - Swab Laboratory Results 10/13/16 05:50 10/13/16 05:56 10/14/16 10/15/16 10/16/16 05:59 05:59 05:59 Intake Total 1200 2490 450 Output Total 0 2000 Balance 1200 490 450 PT 12.8 SEC (12.0-15.0) 10/09/16 21:34 INR 0.97 (0.83-1.16) 10/09/16 21:34 - Physical Exam Constitutional: uncomfortable Eyes: PERRL Ears, Nose, Mouth, Throat: hearing normal Respiratory: no respiratory distress Gastrointestinal: normoactive bowel sounds Skin: warm, other (right upper thigh area with dressing) Musculoskeletal: No no muscle tenderness Neurologic: AAOx3 Psychiatric: anxious ICD10 Worksheet Patient Problems: Problems Problem Status Diagnosed Cellulitis of right lower extremity Acute
[2016-10-15 17:20] VITALS: BP 113/82; PULSE 106; O2SAT 95
--- NOTE | 2016-10-16 09:43 | GDS ---
[f rep st] DISCHARGE SUMMARY DISCHARGE DIAGNOSES: 1. Acute right lower extremity cellulitis with abscess, Methicillin-sensitive Staphylococcus aureus .. 2. Sepsis. 3. Leukocytosis. 4. Chronic continuous IV drug abuse. 5. Hyperkalemia. 6. Rheumatoid arthritis, fibromyalgia, chronic pain. 7. Anemia. 8. Nicotine dependence. CONSULTATIONS: During stay: Dr. Neftaly Henderson and Dr. Renan Lin. BRIEF HISTORY: The patient is a 40-year-old female, with past medical history significant for IV dr ug use, rheumatoid arthritis, fibromyalgia and hypothyroidism. She had been injecting IV heroin and methamphetamine 4 days prior to her admission into her right lateral thigh vein and she missed. Th e drug extravasated subcutaneously. She developed redness and pain and swelling involving the thigh . She was seen and treated by the infectious disease team with ertapenem. She was also seen by Dr. Henderson and she had a wound VAC in place. Her stay was complicated in that she was injecting the or al narcotics in her IV and then yesterday she opened up the sharps unit and was emptying it into her backpack. Last night, she decided to leave against medical advice. Fortunately, her wound VAC had been discontinued. She was given a prescription for Bactrim to continue for the next week. HOSPITAL COURSE: 1. Acute right lower extremity cellulitis with recent IV drug use. She was on ertapenem, changed t o Bactrim. 2. Sepsis, stable. 3. Leukocytosis due to the above. 4. Chronic continued IV drug abuse. She was demanding significant amounts of oral Dilaudid. We we re trying to give her resources for Suboxone clinics and also trying to help her with placement. 5. Hyperkalemia, resolved. 6. RA, fibromyalgia. She says this is why she uses methamphetamine and heroin. 7. Anemia, stable. 8. Nicotine dependence. She declined a nicotine patch. DISCHARGE INSTRUCTIONS: No discharge instructions were given to her. Her vital signs were stable l ast night prior to her discharge. Blood pressure was 113/82, heart rate was 106, respiratory rate 1 6, O2 saturation on room air was 95%. /[id number]/MODL
== END 2016-10-15 18:52 | disposition left against medical advice (07) | DRG 854 ==
LOC: F3E 10-09 00:58
PROVIDERS: ADMIT Internal Medicine; ATTEND Internal Medicine
PROC: 0J9L0ZZ Drainage of Right Upper Leg Subcutaneous Tissue and Fascia, Open Approach (ICD-10-PCS; principal; 2016-10-08)
PROC: 2W1 Placement, Anatomical Regions, Compression (ICD-10-PCS; 2016-10-10 21:34)
PROC: 0JDL0ZZ Extraction of Right Upper Leg Subcutaneous Tissue and Fascia, Open Approach (ICD-10-PCS; 2016-10-10 21:34)
PROC: 0JDL0ZZ Extraction of Right Upper Leg Subcutaneous Tissue and Fascia, Open Approach (ICD-10-PCS; 2016-10-13)
PROC: 0JJW0ZZ Inspection of Lower Extremity Subcutaneous Tissue and Fascia, Open Approach (ICD-10-PCS; 2016-10-15)
DX: A41.01 Sepsis due to Methicillin susceptible Staphylococcus aureus (principal); L03.115 Cellulitis of right lower limb; F15.20 Other stimulant dependence, uncomplicated; F11.20 Opioid dependence, uncomplicated; E87.5 Hyperkalemia; M06.9 Rheumatoid arthritis, unspecified; M79.7 Fibromyalgia; E03.9 Hypothyroidism, unspecified; F17.210 Nicotine dependence, cigarettes, uncomplicated; D64.9 Anemia, unspecified; M79.661 Pain in right lower leg; D72.829 Elevated white blood cell count, unspecified; Z88.0 Allergy status to penicillin; Z86.14 Personal history of Methicillin resistant Staphylococcus aureus infection; Z85.42 Personal history of malignant neoplasm of other parts of uterus; Z59.0 Homelessness
CPT/HCPCS: 84134-90; 86704-90; 86705-90; 96374; G0472; J0330; J0692; J1170; J1335; J1650; J1885; J2001; J2250; J2405; J2704; J3010; J3370; Q9967